=== PATIENT | female | born 1990 | race Caucasian/White ===

== ENCOUNTER 2017-10-03 13:35 | Emergency (ER) | payer OTHER ==
[~2017-10-03] VITALS: Ht 167.6 cm; Wt 76.2 kg
[2017-10-03] MEDS ORDERED: SERTRALINE HCL50 MG (13:45)
== END 2017-10-03 14:24 | disposition home or self-care (01) ==
LOC: ER 13:35
DX: G43.519 Persistent migraine aura without cerebral infarction, intractable, without status migrainosus (principal)

== ENCOUNTER → 2017-10-03 | Outpatient (CLI) | payer OTHER ==
[~2017-10-03] MED LIST: SERTRALINE HCL50 MG
== END | disposition home or self-care (01) ==
LOC: MRI 14:48
DX: G43.909 Migraine, unspecified, not intractable, without status migrainosus (principal)
CPT/HCPCS: 70551